=== PATIENT | female | born 1990 | race African-American/Black ===

== ENCOUNTER 2024-05-07 14:11 | Emergency (ER) | payer MEDICAID, OTHER ==
[~2024-05-07] VITALS: Ht 167.6 cm; Wt 68.0 kg
[2024-05-07 14:13] VITALS: O2SAT 100
[2024-05-07] MEDS ORDERED: ONDANSETRON HCL 4MG/2ML INJ IM STA (14:56)
[2024-05-07] MEDS ORDERED: HYDROCODONE/ACETAMINOPHEN 5/325MG TABLET PO STA (14:56)
[2024-05-07] MEDS ORDERED: KETOROLAC 30MG/ML VIAL IM STA (14:56)
[2024-05-07 15:36] LABS: BASOPHILS % 0.7 % (0.0-2.0); DIFFERENTIAL COMMENT 0; EOSINOPHILS % 1.1 % (0.0-5.0); HEMATOCRIT. 39.3 % (36.0-48.0); HEMOGLOBIN. 13.2 g/dL (12.0-16.0); LYMPHOCYTES % 14.5 % (20.0-50.0); MEAN CORPUSCULAR HEMOGLOBIN 34.9 pg (28.0-32.0); MEAN CORPUSCULAR HGB CONC 33.6 g/dL (31.0-37.0); MEAN PLATELET VOLUME 8.8 fl (7.4-10.4); MONOCYTES % 4.9 % (2.0-8.0); NEUTROPHILS % 78.8 % (40.0-76.0); PLATELET 468 x1000/uL (130-400); RED BLOOD CELL COUNT 3.78 mill/uL (4.2-5.4); RED CELL DISTRIBUTION WIDTH 12.7 % (11.6-14.6); WHITE BLOOD COUNT 8.4 x1000/uL (4.5-11.0)
[2024-05-07 15:42] LABS: CHLORIDE 109 mEq/L (98-107); POTASSIUM 4.1 mEq/L (3.5-5.1); SODIUM 142 mEq/L (136-145)
[2024-05-07 15:43] LABS: CALCIUM 10.2 mg/dL (8.7-10.4); CARBON DIOXIDE 24 mEq/L (21-32)
[2024-05-07 15:48] LABS: CREATININE 0.8 mg/dL (0.6-1.0); GLUCOSE 90 mg/dL (70-105); UREA NITROGEN BLOOD 7 mg/dL (9-23)
[2024-05-07 15:49] LABS: TROPONIN I HIGH SENSITIVITY 4 ng/L (3.0-34)
[2024-05-07] MEDS: ONDANSETRON HCL 4MG/2ML INJ IM NR (17:30)
[2024-05-07] MEDS: HYDROCODONE/ACETAMINOPHEN 5/325MG TABLET PO NR (17:30)
[2024-05-07] MEDS: KETOROLAC 30MG/ML VIAL IM NR (17:30)
[2024-05-07 19:06] VITALS: TEMP 36.61404; O2SAT 100
[2024-05-07] MEDS: MORPHINE SULFATE 4 MG/ML INJ (FOR IV/IM USE) IV STA (19:52)
[2024-05-07 21:34] VITALS: BP 148/88; PULSE 83; RESP 18
[2024-05-07] MEDS: HYDROCODONE/ACETAMINOPHEN 5/325MG TABLET PO STA (21:34)
== END 2024-05-07 21:36 | disposition short-term general hospital (02) ==
LOC: ER 14:52 → CANBEDREQ 20:20 → ER 21:36
DX: S16.1XXA Strain of muscle, fascia and tendon at neck level, initial encounter (principal); M54.2 Cervicalgia; D64.9 Anemia, unspecified; G43.909 Migraine, unspecified, not intractable, without status migrainosus; I10 Essential (primary) hypertension; Z88.1 Allergy status to other antibiotic agents; V89.2XXA Person injured in unspecified motor-vehicle accident, traffic, initial encounter; Y92.410 Unspecified street and highway as the place of occurrence of the external cause; Y93.89 Activity, other specified; Y99.8 Other external cause status
CPT/HCPCS: 99285; 70450; 96374; 80048; 85025; 84484; 36415; 70486; 72125; 71250; 74176; 96372; J1885; J2405; J2270